=== PATIENT | female | born 1965 | race Two or more races ===

== ENCOUNTER 2019-09-12 09:40 | Emergency (ER) | payer BC ==
[~2019-09-12] VITALS: Ht 157.5 cm; Wt 62.1 kg
[2019-09-12] MEDS ORDERED: TENORMIN25 MG (09:56)
[2019-09-12] MEDS ORDERED: SIMVASTATIN5 MG (09:57)
== END 2019-09-12 14:56 | disposition home or self-care (01) ==
LOC: ER 09:40
DX: R10.13 Epigastric pain (principal)

== ENCOUNTER 2020-04-08 13:27 | Outpatient (CLI) | payer BC ==
[~2020-04-08 13:27] MED LIST: SIMVASTATIN5 MG; TENORMIN25 MG
== END 2020-04-08 13:35 | disposition home or self-care (01) ==
LOC: RAD 13:27
PROVIDERS: ATTEND Orthopaedic Surgery
DX: M79.641 Pain in right hand (principal); M79.644 Pain in right finger(s); M54.5 Low back pain

== ENCOUNTER 2020-05-02 12:08 | Outpatient (CLI) | payer BC | END 2020-05-02 12:10 | disposition home or self-care (01) | LOC: NUCLEAR 12:08 | PROVIDERS: ATTEND Orthopaedic Surgery | DX: M81.0 Age-related osteoporosis without current pathological fracture (principal) ==

== ENCOUNTER 2020-06-27 11:00 | Outpatient (CLI) | payer BC | END 2020-06-27 11:05 | disposition home or self-care (01) | LOC: LAB 11:00 | PROVIDERS: ATTEND Orthopaedic Surgery | DX: E21.2 Other hyperparathyroidism (principal); E55.9 Vitamin D deficiency, unspecified; M85.88 Other specified disorders of bone density and structure, other site; M81.8 Other osteoporosis without current pathological fracture; E56.1 Deficiency of vitamin K ==

== ENCOUNTER 2020-08-23 15:58 | Outpatient (CLI) | payer BC | END 2020-08-23 16:01 | disposition home or self-care (01) | LOC: RAD 15:58 | PROVIDERS: ATTEND Orthopaedic Surgery | DX: M25.521 Pain in right elbow (principal); M25.561 Pain in right knee; M25.562 Pain in left knee ==

== ENCOUNTER 2020-09-19 14:51 | Emergency (ER) | payer BC ==
[~2020-09-19] VITALS: Ht 154.9 cm; Wt 60.3 kg
[2020-09-19] MEDS ORDERED: DICLOFENAC SODI50 MG (15:01)
[2020-09-19] MEDS ORDERED: ESCITALOPRA5 MG/5 ML (15:01)
[2020-09-19] MEDS ORDERED: PANTOPRAZOLE SO40 MG (15:02)
[2020-09-19] MEDS ORDERED: PROTONIX40 MG PO (18:37)
[2020-09-19] MEDS ORDERED: CARAFATE1 GM PO (18:37)
== END 2020-09-19 18:51 | disposition home or self-care (01) ==
LOC: ER 14:51
DX: K29.70 Gastritis, unspecified, without bleeding (principal); R19.5 Other fecal abnormalities; Z03.818 Encounter for observation for suspected exposure to other biological agents ruled out

== ENCOUNTER 2020-10-31 15:03 | Outpatient (CLI) | payer BC ==
[~2020-10-31 15:03] MED LIST changes: +CARAFATE1 GM PO; +DICLOFENAC SODI50 MG; +ESCITALOPRA5 MG/5 ML; +PANTOPRAZOLE SO40 MG; +PROTONIX40 MG PO
== END 2020-10-31 15:13 | disposition home or self-care (01) ==
LOC: RAD 15:03
PROVIDERS: ATTEND Orthopaedic Surgery
DX: M25.511 Pain in right shoulder (principal); M25.512 Pain in left shoulder

== ENCOUNTER 2020-11-09 10:08 | Outpatient (CLI) | payer BC | END 2020-11-09 10:23 | disposition home or self-care (01) | LOC: RAD 10:08 | PROVIDERS: ATTEND Orthopaedic Surgery | DX: M25.511 Pain in right shoulder (principal); M25.512 Pain in left shoulder ==